=== PATIENT | male | born 1960 | race Caucasian/White ===

== ENCOUNTER 2017-07-29 13:13 | Outpatient (CLI) | payer BC ==
[2017-07-29] MEDS ORDERED: Iopamidol 370 76% 100 ML VIAL ONE (13:39)
--- NOTE | 2017-07-29 15:18 | CT ---
CT ORBITS WITH CONTRAST: Comparison: None. History: Eye pain and inflammation. Retroorbital mass. Technique: Multiple contiguous axial images were obtained in a CT of the orbits with contrast. Sagitt al and coronal reformats were performed. FINDINGS: The globes and retrobulbar soft tissues are unremarkable. No retrobulbar mass or fluid collection is seen. Extraoccular muscles and optic nerves are symmetric in appearance. The paranasal sinuses are well aerated without mucosal thickening or opacification. The bilateral max illary osteomeatal units are patent. The mastoid air cells are well aerated. The visualized intracran ial structures are unremarkable. IMPRESSION: No significant abnormality. POS: [facility]
== END 2017-07-29 13:14 | disposition home or self-care (01) ==
LOC: CT 13:13
PROVIDERS: ATTEND Ophthalmology
DX: H57.10 Ocular pain, unspecified eye (principal)
CPT/HCPCS: 70481

== ENCOUNTER 2020-08-25 10:45 | Outpatient (CLI) | payer BC | END 2020-08-25 10:46 | disposition home or self-care (01) | LOC: LABBT 10:45 | PROVIDERS: ATTEND Thoracic Surgery (Cardiothoracic Vascular Surgery) | DX: Z01.812 Encounter for preprocedural laboratory examination (principal); Z20.822 Contact with and (suspected) exposure to COVID-19 | CPT/HCPCS: 80048; 85027; 86850; 86900; 86901; 87635; U0003; U0005 ==

== ENCOUNTER 2020-08-25 10:45 | Inpatient (IN) | payer BC ==
[2020-08-25 13:51] LABS: Hemoglobin 15.6 g/dL (13.5-17.5); Mean Corpuscular Hemoglobin 29.5 pg (27.0-33.0); Mean Corpuscular Volume 89.6 fl (81.2-95.1); Mean Platelet Volume 10.1 fl (7.4-10.4); Platelet Count 226 10x3/uL (150-450); RBC Distribution Width 13.2 % (11.5-14.5); Red Blood Cell (RBC) Count 5.28 10x6/uL (4.32-5.72); White Blood Cell (WBC) Count 7.3 10x3/uL (3.5-10.5)
[2020-08-25 13:59] LABS: Anion Gap 14 mmol/L (10-20); BUN (Urea Nitrogen) 13 mg/dL (8.4-25.7); Calc. Creatinine Clearance 0 mL/min (70-130); Calcium 9.1 mg/dL (7.8-10.44); Carbon Dioxide 25 mmol/L (23-31); Chloride 103 mmol/L (98-107); Glucose 100 mg/dL (80-115); Potassium 4.6 mmol/L (3.5-5.1); Sodium 137 mmol/L (136-145)
[2020-08-25 23:52] LABS: SARS-CoV-2 PCR by NAA Not Detected (NotDetected)
[2020-08-30] MEDS ORDERED: Albumin 5% 500 ML ONE (06:26)
[2020-08-30] MEDS ORDERED: Dexmedetomidine 200 MCG/2 ML VIAL ONE (06:32)
[2020-08-30] MEDS ORDERED: Midazolam HCl 5 mg/5 ml Vial ONE (06:32)
[2020-08-30] MEDS ORDERED: Fentanyl 100 MCG/2 ML VIAL ONE (06:32)
[2020-08-30] MEDS ORDERED: Midazolam HCl 2 mg/2 ml Vial ONE (06:32)
[2020-08-30] MEDS ORDERED: Vecuronium 10 MG VIAL ONE ×3 (06:32→07:28)
[2020-08-30] MEDS ORDERED: Ketorolac Tromethamine 30 MG/ML VIAL ONE (07:28)
[2020-08-30] MEDS ORDERED: PROPOFOL 200 MG/20 ML VIAL ONE (07:28)
[2020-08-30] MEDS ORDERED: Cardioplegic Soln 1,000 ML BAG ONE (07:28)
[2020-08-30] MEDS ORDERED: Papaverine 60 MG/2 ML VIAL ONE (07:28)
[2020-08-30] MEDS ORDERED: Sodium Bicarb 50 MEQ/50 ML Abboject 8.4% SYRINGE ONE (07:28)
[2020-08-30] MEDS ORDERED: Calcium Chloride 1 GM/10 ML Abboject SYRINGE ONE (07:28)
[2020-08-30] MEDS ORDERED: Heparin 5,000 UNITS/ML VIAL ONE (07:28)
[2020-08-30] MEDS ORDERED: PHENYLEPHRINE-NS 100 MCG/ML 10 ML SYRINGE ONE (07:28)
[2020-08-30] MEDS ORDERED: Mannitol 12.5 GM/50 ML ONE (07:28)
[2020-08-30] MEDS ORDERED: Aminocaproic Acid 5 GM/20 ML VIAL ONE (07:28)
[2020-08-30] MEDS ORDERED: Lidocaine 2% PF 100 mg/5 ml Syringe ONE (07:28)
[2020-08-30] MEDS ORDERED: Heparin 30,000 units/30 ml VIAL ONE (07:28)
[2020-08-30] MEDS ORDERED: Glycopyrrolate 0.2 MG/ML 5 ML SYRINGE ONE (07:28)
[2020-08-30] MEDS ORDERED: Protamine Sulfate 250 MG/25 ML VIAL ONE (07:28)
[2020-08-30] MEDS ORDERED: Magnesium Sulfate 1 GM/2 ML VIAL ONE (07:28)
[2020-08-30] MEDS ORDERED: Nitroglycerin 50 MG/250 ML BOT ONE (07:28)
[2020-08-30] MEDS ORDERED: Thrombin 5000 UNITS/5 ML VIAL ONE (07:28)
[2020-08-30] MEDS ORDERED: Ondansetron PF 4 MG/2 ML Vial ONE (07:28)
[2020-08-30] MEDS ORDERED: Dexamethasone 20 MG/5 ML VIAL ONE (07:28)
[2020-08-30] MEDS ORDERED: ePHEDrine 50 MG/ML VIAL ONE (07:28)
[2020-08-30] MEDS ORDERED: Potassium Chloride 60 MEQ/30 ML VIAL ONE (07:28)
[2020-08-30] MEDS ORDERED: Lidocaine 1% PF 5 ML VIAL ONE ×2 (07:28)
[2020-08-30] MEDS ORDERED: Insulin Regular 300 UNITS/3 ML VIAL ONE (09:02)
[2020-08-30] MEDS ORDERED: Promethazine HCl 25 MG/ML VIAL IM PRN (11:12)
[2020-08-30] MEDS ORDERED: Guaifenesin DM 100-10/5 ML UDCUP PO PRN (11:12)
[2020-08-30] MEDS ORDERED: Nitroglycerin 50 MG/250 ML BOT 250 ML IVPB PRN (11:12)
[2020-08-30] MEDS ORDERED: Bisacodyl 10 MG SUPP PR PRN (11:12)
[2020-08-30] MEDS ORDERED: Mag-Al 1200 mg/1200 mg/30 ML UDCUP PO PRN (11:12)
[2020-08-30] MEDS ORDERED: Bisacodyl 5 MG TAB PO PRN (11:12)
[2020-08-30] MEDS ORDERED: Potassium Chloride 20 MEQ/100 ML PREMIX BAG IVPB PRN (11:12)
[2020-08-30] MEDS ORDERED: niCARdipine 25 MG in Sodium Chloride 0.9% 250 ML 250 ML IVPB PRN (11:12)
[2020-08-30] MEDS ORDERED: Post-Op Insulin Drip Protocol IVPB ONE (11:12)
[2020-08-30] MEDS ORDERED: hydrALAZINE 20 MG/ML VIAL SLOW IVP PRN (11:12)
[2020-08-30] MEDS ORDERED: Norepinephrine 8 MG/0.9% NS 250 ML IVPB PRN (11:12)
[2020-08-30] MEDS ORDERED: Ondansetron PF 4 MG/2 ML Vial IVP PRN (11:12)
[2020-08-30] MEDS ORDERED: Hetastarch 6% 500 ML 500 ML IVPB PRN (11:12)
[2020-08-30] MEDS ORDERED: Morphine 2 MG/ML VIAL SLOW IVP PRN (11:12)
[2020-08-30] MEDS ORDERED: DOPamine 400 MG/D5W 250 ML 250 ML IVPB PRN (11:12)
[2020-08-30] MEDS ORDERED: Fentanyl 100 MCG/2 ML VIAL SLOW IVP PRN (11:12)
[2020-08-30] MEDS ORDERED: Acetaminophen 325 MG TAB PO PRN (11:12)
[2020-08-30] MEDS ORDERED: Magnesium 2 GM/50 ML 2 GM in Premix Bag 1 BAG IVPB SCH (11:15)
[2020-08-30] MEDS ORDERED: HUMULIN R 100 UNITS in Sodium Chloride 0.9% 100 ML IVPB SCH (11:45)
[2020-08-30] MEDS ORDERED: Dextrose 5% in Water 1,000 ML IV PRN (11:45)
[2020-08-30] MEDS ORDERED: Dextrose 50% Abboject 50 ML SYRINGE SLOW IVP PRN (11:45)
[2020-08-30] MEDS ORDERED: Insulin Regular 300 UNITS/3 ML VIAL SC PRN (11:45)
[2020-08-30 12:00] LABS: INR-International Normal Ratio 1.1; Prothrombin Time 14.9 sec (12.0-14.7)
[2020-08-30 12:04] LABS: Hemoglobin 14.6 g/dL (14.0-18.0); Mean Corpuscular HGB CONC 35.6 g/dL (32.0-36.0); Mean Corpuscular Hemoglobin 31.6 pg (27.0-31.0); Mean Corpuscular Volume 88.7 fL (78.0-98.0); Mean Platelet Volume 7.5 fL (7.4-10.4); Platelet Count 156 thou/uL (130-400); RBC Distribution Width 12.7 % (11.5-14.5); Red Blood Cell (RBC) Count 4.63 mill/uL (4.70-6.10); White Blood Cell (WBC) Count 13.6 thou/uL (4.8-10.8)
[2020-08-30 12:09] LABS: Anion Gap 10 mmol/L (10-20); BUN (Urea Nitrogen) 18 mg/dL (8.4-25.7); Calc. Creatinine Clearance 104 mL/min (70-130); Calcium 7.6 mg/dL (7.8-10.44); Carbon Dioxide 22 mmol/L (23-31); Chloride 110 mmol/L (98-107); Glucose 159 mg/dL (80-115); Potassium 4.6 mmol/L (3.5-5.1); Sodium 137 mmol/L (136-145)
[2020-08-30] MEDS: Fentanyl 100 MCG/2 ML VIAL SLOW IVP PRN ×2 (12:19→13:01)
[2020-08-30 12:29] LABS: Band 23 % (5-11); Eosinophils 1 % (0-10); Lymphocytes 6 % (21-51); MDiff Complete? YES; Metamyelocyte 2 % (0-0); Monocytes 4 % (0-10); Neutrophil 63 % (42-75); RBC Morphology Normal; Reactive Lymphocytes 1 % (0-10)
[2020-08-30] MEDS: Lactated Ringer's 1,000 ML IV SCH (13:03)
[2020-08-30] MEDS: CEFAZOLIN 2 GM in Premix Bag 1 BAG IVPB SCH ×2 (13:12→22:38)
[2020-08-30] MEDS: Ketorolac Tromethamine 30 MG/ML VIAL IVP SCH ×2 (13:12→17:44)
[2020-08-30 13:38] VITALS: BMI 35.2
[2020-08-30 17:27] LABS: Hemoglobin 14.6 g/dL (14.0-18.0)
[2020-08-30 17:53] LABS: Potassium 4.5 mmol/L (3.5-5.1)
[2020-08-30] MEDS: Vancomycin 1.5 GRAM/300 ML BAG 1.5 GM in Premix Bag 1 BAG IVPB SCH (20:31)
[2020-08-30] MEDS: Famotidine/PF 20 mg/2ml Vial SLOW IVP SCH (20:32)
[2020-08-30] MEDS ORDERED: Atorvastatin Calcium 10 MG TAB PO SCH (21:00)
[2020-08-30] MEDS ORDERED: Atorvastatin Calcium 40 MG TAB PO SCH (21:00)
[2020-08-31] MEDS: Lactated Ringer's 1,000 ML IV SCH (00:27)
[2020-08-31] MEDS: Ketorolac Tromethamine 30 MG/ML VIAL IVP SCH ×4 (00:38→17:34)
[2020-08-31] MEDS: HYDROcodone/Acetaminophen 5/325 mg Tablet PO PRN ×3 (04:12→20:53)
[2020-08-31 04:38] LABS: #Lymphocytes 1.1 thou/uL (1.20-3.40); #Monocytes 1.4 thou/uL (0.11-0.59); %Eosinophils 0.1 % (0.0-10.0); %Monocytes 10.1 % (0.0-10.0); %Neutrophils 81.8 % (42.0-75.0); Mean Corpuscular HGB CONC 34.2 g/dL (32.0-36.0); Mean Corpuscular Hemoglobin 30.9 pg (27.0-31.0); Mean Corpuscular Volume 90.2 fL (78.0-98.0); Mean Platelet Volume 7.5 fL (7.4-10.4); Platelet Count 187 thou/uL (130-400); RBC Distribution Width 13.1 % (11.5-14.5); Red Blood Cell (RBC) Count 4.53 mill/uL (4.70-6.10); White Blood Cell (WBC) Count 13.5 thou/uL (4.8-10.8)
[2020-08-31 04:52] LABS: Anion Gap 13 mmol/L (10-20); BUN (Urea Nitrogen) 19 mg/dL (8.4-25.7); Calc. Creatinine Clearance 113 mL/min (70-130); Calcium 7.6 mg/dL (7.8-10.44); Carbon Dioxide 20 mmol/L (23-31); Chloride 108 mmol/L (98-107); Glucose 119 mg/dL (80-115); Potassium 4.1 mmol/L (3.5-5.1); Sodium 137 mmol/L (136-145)
[2020-08-31] MEDS: CEFAZOLIN 2 GM in Premix Bag 1 BAG IVPB SCH (06:30)
[2020-08-31] MEDS: Famotidine/PF 20 mg/2ml Vial SLOW IVP SCH (07:53)
[2020-08-31] MEDS: Vancomycin 1.5 GRAM/300 ML BAG 1.5 GM in Premix Bag 1 BAG IVPB SCH (07:53)
[2020-08-31] MEDS: Aspirin 325 MG TAB PO SCH (07:53)
[2020-08-31] MEDS ORDERED: Carvedilol 3.125 MG TAB PO SCH (09:45)
[2020-08-31] MEDS ORDERED: Nitroglycerin 0.4 MG TAB (25 Tab Bottle) SL PRN (11:36)
[2020-08-31] MEDS ORDERED: Dextrose 50% Abboject 50 ML SYRINGE SLOW IVP PRN (12:00)
[2020-08-31] MEDS ORDERED: Dextrose 5% in Water 1,000 ML IV PRN (12:00)
[2020-08-31] MEDS: Carvedilol 3.125 MG TAB PO SCH (17:34)
[2020-08-31] MEDS: Insulin Regular 300 UNITS/3 ML VIAL SC PRN (17:35)
[2020-08-31] MEDS: Atorvastatin Calcium 40 MG TAB PO SCH (20:51)
[2020-08-31] MEDS ORDERED: Enoxaparin Sodium 40 MG/0.4 ML SYRINGE SC SCH (21:00)
[2020-09-01] MEDS: Ketorolac Tromethamine 30 MG/ML VIAL IVP SCH ×5 (00:39→23:48)
[2020-09-01] MEDS: HYDROcodone/Acetaminophen 5/325 mg Tablet PO PRN ×2 (04:50→09:00)
[2020-09-01] MEDS: Insulin Regular 300 UNITS/3 ML VIAL SC PRN (06:25)
[2020-09-01] MEDS: Furosemide 40 MG TAB PO SCH (09:02)
[2020-09-01] MEDS: Aspirin 325 MG TAB PO SCH (09:02)
[2020-09-01] MEDS: Potassium Chloride 10 MEQ TAB PO SCH (09:02)
[2020-09-01] MEDS: Metoprolol Tartrate 25 MG TAB PO SCH ×2 (09:02→21:23)
[2020-09-01] MEDS: Polyethylene Glycol 3350 17 GM Packet PO SCH (09:03)
[2020-09-01] MEDS: Carvedilol 3.125 MG TAB PO SCH (09:05)
[2020-09-01 12:22] LABS: Hemoglobin A1c 5.4 % (4.0-6.0)
[2020-09-01] MEDS: Atorvastatin Calcium 40 MG TAB PO SCH (21:24)
[2020-09-02] MEDS: Ketorolac Tromethamine 30 MG/ML VIAL IVP SCH ×2 (01:03→06:59)
[2020-09-02] MEDS: Potassium Chloride 10 MEQ TAB PO SCH (08:12)
[2020-09-02] MEDS: Furosemide 40 MG TAB PO SCH (08:13)
[2020-09-02] MEDS: Aspirin 325 MG TAB PO SCH (08:13)
[2020-09-02] MEDS: Metoprolol Tartrate 25 MG TAB PO SCH (08:13)
[2020-09-02] MEDS: Polyethylene Glycol 3350 17 GM Packet PO SCH (08:13)
[2020-09-02] MEDS ORDERED: Lisinopril 2.5 MG TAB PO SCH (09:00)
[2020-09-02 12:27] VITALS: BP 137/89; TEMP 98.4
[2020-09-18 14:10] LABS: Actual Bicarbonate (HCO3a) 20.1 mEq/L (22-28); Analyzer IN Cardio OR; Base Excess (BEa) -4.1 mEq/L (-2.0 to +3.0); CO2 Tension 34.6 mmHg (35.0-45.0); Carboxyhemoglobin (COHb) 0.6 gm% (0.0-3.0); Hemoglobin (Hb) 14.6 g/dL (14.0-18.0); O2 Tension (PaO2), arterial 204.9 mmHg (> 80.0); Potassium - ABG Lab 4.43 mmol/L (3.70-5.30); pH, Arterial 7.38 (7.35-7.45)
[2020-09-18 14:11] LABS: Actual Bicarbonate (HCO3v) 23 mEq/L (22-28); Analyzer IN Cardio OR; Base Excess -2.4 mEq/L (-2.0 to +3.0); Calcium, Ionized (venous) 1.02 mmol/L (1.16-1.32); Chloride (VBG) 109 mmol/L (98-106); Potassium (VBG) 5.53 mmol/L (3.70-5.30); Sodium 131.6 mmol/L (133-146); pH (venous) 7.35 (7.32-7.43)
[2020-09-18 14:12] LABS: Analyzer IN Cardio OR; Base Excess (BEa) -1.8 mEq/L (-2.0 to +3.0); CO2 Tension 39.5 mmHg (35.0-45.0); Calcium, Ionized (arterial) 0.99 mmol/L (1.12-1.30); Carboxyhemoglobin (COHb) 0.1 gm% (0.0-3.0); O2 Tension (PaO2), arterial 334.4 mmHg (> 80.0); Potassium - ABG Lab 5.45 mmol/L (3.70-5.30); pH, Arterial 7.38 (7.35-7.45)
[2020-09-18 14:12] LABS: Actual Bicarbonate (HCO3a) 21.7 mEq/L (22-28); Analyzer IN Cardio OR; Base Excess (BEa) -3.1 mEq/L (-2.0 to +3.0); CO2 Tension 38.2 mmHg (35.0-45.0); Calcium, Ionized (arterial) 1.12 mmol/L (1.12-1.30); Carboxyhemoglobin (COHb) 0.7 gm% (0.0-3.0); Hemoglobin (Hb) 15.2 g/dL (14.0-18.0); Potassium - ABG Lab 4.87 mmol/L (3.70-5.30); pH, Arterial 7.37 (7.35-7.45)
[2020-09-18 14:12] LABS: Analyzer IN Cardio OR; Base Excess (BEa) -2.4 mEq/L (-2.0 to +3.0); CO2 Tension 41.8 mmHg (35.0-45.0); Calcium, Ionized (arterial) 1.18 mmol/L (1.12-1.30); Carboxyhemoglobin (COHb) 0.9 gm% (0.0-3.0); Hemoglobin (Hb) 15.3 g/dL (14.0-18.0); O2 Tension (PaO2), arterial 129.6 mmHg (> 80.0); Potassium - ABG Lab 4.65 mmol/L (3.70-5.30); pH, Arterial 7.36 (7.35-7.45)
[2020-09-18 14:13] LABS: Puncture Site Arterial Line
[2020-09-18 14:15] LABS: Puncture Site Arterial Line
[2020-09-18 14:16] LABS: Puncture Site Arterial Line
[2020-09-18 14:17] LABS: Puncture Site Arterial Line
== END 2020-09-02 12:52 | disposition home or self-care (01) | DRG 236 ==
LOC: SURG A 08-30 06:00 → EDSTATUS 08-30 10:45 → CCU 08-30 11:20 → 2NO 08-31 11:07
PROVIDERS: ADMIT Thoracic Surgery (Cardiothoracic Vascular Surgery); ATTEND Thoracic Surgery (Cardiothoracic Vascular Surgery)
PROC: 02100Z9 Bypass Coronary Artery, One Artery from Left Internal Mammary, Open Approach (ICD-10-PCS; principal; 2020-08-30)
PROC: 02100AW Bypass Coronary Artery, One Artery from Aorta with Autologous Arterial Tissue, Open Approach (ICD-10-PCS; 2020-08-30)
PROC: 03BC0ZZ Excision of Left Radial Artery, Open Approach (ICD-10-PCS; 2020-08-30)
PROC: 5A1221Z Performance of Cardiac Output, Continuous (ICD-10-PCS; 2020-08-30)
DX: I25.10 Atherosclerotic heart disease of native coronary artery without angina pectoris (principal); E11.9 Type 2 diabetes mellitus without complications; E78.5 Hyperlipidemia, unspecified; Z20.822 Contact with and (suspected) exposure to COVID-19; K21.9 Gastro-esophageal reflux disease without esophagitis; E66.3 Overweight; E78.2 Mixed hyperlipidemia; I10 Essential (primary) hypertension; F17.210 Nicotine dependence, cigarettes, uncomplicated; M19.90 Unspecified osteoarthritis, unspecified site; Z79.84 Long term (current) use of oral hypoglycemic drugs; Z79.82 Long term (current) use of aspirin; Z79.899 Other long term (current) drug therapy; Z68.35 Body mass index [BMI] 35.0-35.9, adult
CPT/HCPCS: 36415; 36416; 36430; 71045; 80048; 82805; 82947; 83036; 85025; 85027; 85610; 85730; 86850; 86900; 86901; 87635; 93005; 93010; 93798; J0690; J1100; J1642; J1644; J1815; J1885; J2001; J2150; J2250; J2405; J2440; J2704; J2720; J3010; J3370; J3475; J3480; J3490; P9045; S0017; S0028; U0003; U0005

== ENCOUNTER 2021-04-05 12:30 | Outpatient (CLI) | payer BC ==
[2021-04-05 13:26] LABS: #Basophils 0.1 10x3/uL (0.0-0.2); #Eosinphils 0.3 10x3/uL (0.0-0.5); #Monocytes 0.7 10x3/uL (0.0-1.1); #Neutrophils 4.8 10x3/uL (1.5-8.4); %Basophils 0.7 % (0.0-2.0); %Eosinophils 3.9 % (0.0-6.0); %Lymphocytes 17.9 % (18.0-47.0); %Monocytes 10.3 % (0.0-10.0); %Neutrophils 66.9 % (40.0-75.0); Hemoglobin 16.5 g/dL (13.5-17.5); Mean Corpuscular HGB CONC 33.2 g/dL (32.0-36.0); Mean Corpuscular Hemoglobin 30.1 pg (27.0-33.0); Mean Corpuscular Volume 90.5 fl (81.2-95.1); Mean Platelet Volume 9.5 fl (7.4-10.4); Platelet Count 249 10x3/uL (150-450); RBC Distribution Width 12.8 % (11.5-14.5); Red Blood Cell (RBC) Count 5.49 10x6/uL (4.32-5.72); White Blood Cell (WBC) Count 7.2 10x3/uL (3.5-10.5)
[2021-04-05 13:36] LABS: Prothrombin Time 10.6 sec (9.5-12.1)
[2021-04-05 13:38] LABS: Bilirubin Neg (Negative); Blood, Urine Negative (Negative); Clarity Clear (Clear); Glucose, Urine (Dipstick) Normal (Negative); Ketone, Urine Negative (Negative); Leukocyte Negative (Negative); Nitrite Negative (Negative); Protein, Urine (Dipstick) 15 mg/dl (Neg-Trace); Specific Gravity, Urine 1.025 (1.002-1.036); Urobilinogen Normal mg/dL (Less than 2)
[2021-04-05 13:47] LABS: Anion Gap 16 mmol/L (10-20); BUN (Urea Nitrogen) 18 mg/dL (8.4-25.7); Calc. Creatinine Clearance 0 mL/min (70-130); Calcium 9.8 mg/dL (7.8-10.44); Carbon Dioxide 22 mmol/L (23-31); Chloride 106 mmol/L (98-107); Glucose 101 mg/dL (80-115); Potassium 4.6 mmol/L (3.5-5.1); Sodium 139 mmol/L (136-145)
[2021-04-06 01:42] LABS: SARS-CoV-2 PCR by NAA Not Detected (NotDetected)
== END 2021-04-05 12:31 | disposition home or self-care (01) ==
LOC: LABBT 12:30
PROVIDERS: ATTEND Orthopaedic Surgery
DX: Z01.818 Encounter for other preprocedural examination (principal); M16.11 Unilateral primary osteoarthritis, right hip; Z20.822 Contact with and (suspected) exposure to COVID-19
CPT/HCPCS: 80048; 81003; 85025; 85610; 87081; 93005; 93010; U0003; U0005

== ENCOUNTER 2021-04-10 08:06 | Inpatient (IN) | payer BC ==
[2021-04-09 11:48] VITALS: BMI 33.6
[2021-04-10] MEDS ORDERED: Sodium Chloride 0.9% 100 ML ONE (08:43)
[2021-04-10] MEDS ORDERED: Tranexamic Acid 1,000 MG/10 ML VIAL ONE (08:43)
[2021-04-10] MEDS ORDERED: ceFAZolin 2 GM/DEX 5% 100 ML BAG ONE (08:43)
[2021-04-10] MEDS ORDERED: Vancomycin 1.5 GRAM/300 ML BAG 1.5 GM in Premix Bag 1 BAG IVPB SCH (09:00)
[2021-04-10] MEDS ORDERED: Midazolam HCl 2 mg/2 ml Vial ONE ×2 (10:13→11:53)
[2021-04-10] MEDS ORDERED: Fentanyl 100 MCG/2 ML VIAL ONE ×2 (10:13→11:27)
[2021-04-10] MEDS ORDERED: Promethazine HCl 25 MG/ML VIAL IM PRN (11:37)
[2021-04-10] MEDS ORDERED: Zolpidem Tartrate 5 MG TAB PO PRN (11:37)
[2021-04-10] MEDS ORDERED: HYDROcodone/Acetaminophen 10/325 mg Tablet PO PRN (11:37)
[2021-04-10] MEDS ORDERED: Ondansetron PF 4 MG/2 ML Vial IVP PRN (11:37)
[2021-04-10] MEDS ORDERED: diphenhydrAMINE 25 MG CAP PO PRN (11:37)
[2021-04-10] MEDS ORDERED: Acetaminophen 325 MG TAB PO PRN (11:37)
[2021-04-10] MEDS ORDERED: Bupivacaine HCl 0.5%/Epinephrine 1:200,000/PF 30 ml Vial ONE (11:38)
[2021-04-10] MEDS ORDERED: PHENYLEPHRINE-NS 100 MCG/ML 10 ML SYRINGE ONE (11:38)
[2021-04-10] MEDS ORDERED: Acetaminophen 500 MG TAB PO PRN (11:38)
[2021-04-10] MEDS ORDERED: ePHEDrine 50 MG/ML VIAL ONE (11:38)
[2021-04-10] MEDS ORDERED: PROPOFOL 200 MG/20 ML VIAL ONE (11:38)
[2021-04-10] MEDS ORDERED: Bupivacaine PF 0.5% 30 ML VIAL ONE (11:52)
[2021-04-10] MEDS: Ketorolac Tromethamine 30 MG/ML VIAL IVP SCH (16:14)
[2021-04-10] MEDS ORDERED: glyBURIDE 5 MG TAB PO SCH ×2 (16:30→21:00)
[2021-04-10] MEDS: HYDROcodone/Acetaminophen 10/325 mg Tablet PO PRN ×2 (16:32→21:40)
[2021-04-10] MEDS ORDERED: hydrALAZINE 20 MG/ML VIAL SLOW IVP PRN (16:47)
[2021-04-10] MEDS ORDERED: HumaLOG 300 UNITS/3 ML VIAL SC PRN ×2 (16:50)
[2021-04-10] MEDS ORDERED: Dextrose 50% Abboject 50 ML SYRINGE SLOW IVP PRN (16:50)
[2021-04-10] MEDS ORDERED: Dextrose 5% in Water 1,000 ML IV PRN (16:50)
[2021-04-10] MEDS ORDERED: metFORMIN 500 MG TAB PO SCH ×2 (17:00→21:00)
[2021-04-10] MEDS: Sodium Chloride 0.9% 1,000 ML IV SCH (18:04)
[2021-04-10] MEDS: ceFAZolin Sodium/D5W 2 GM in Premix Bag 1 BAG IVPB SCH (21:39)
[2021-04-10] MEDS: Atorvastatin Calcium 40 MG TAB PO SCH (21:39)
[2021-04-10] MEDS: Aspirin 81 mg Enteric Coated Tablet PO SCH (21:41)
[2021-04-11] MEDS: Ketorolac Tromethamine 30 MG/ML VIAL IVP SCH ×3 (00:21→15:20)
[2021-04-11] MEDS: Sodium Chloride 0.9% 1,000 ML IV SCH ×2 (00:43→07:36)
[2021-04-11] MEDS: HYDROcodone/Acetaminophen 10/325 mg Tablet PO PRN ×4 (04:43→17:39)
[2021-04-11] MEDS: ceFAZolin Sodium/D5W 2 GM in Premix Bag 1 BAG IVPB SCH (04:44)
[2021-04-11 05:34] LABS: Hemoglobin 13.8 g/dL (14.0-18.0); Mean Corpuscular HGB CONC 34.9 g/dL (32.0-36.0); Mean Corpuscular Hemoglobin 32.1 pg (27.0-31.0); Mean Corpuscular Volume 91.8 fL (78.0-98.0); Mean Platelet Volume 6.9 fL (7.4-10.4); Platelet Count 218 thou/uL (130-400); RBC Distribution Width 12.2 % (11.5-14.5); White Blood Cell (WBC) Count 8.4 thou/uL (4.8-10.8)
[2021-04-11 05:50] LABS: Anion Gap 11 mmol/L (10-20); BUN (Urea Nitrogen) 24 mg/dL (8.4-25.7); Calc. Creatinine Clearance 105 mL/min (70-130); Calcium 8.8 mg/dL (7.8-10.44); Carbon Dioxide 23 mmol/L (23-31); Chloride 102 mmol/L (98-107); Glucose 103 mg/dL (80-115); Potassium 4.4 mmol/L (3.5-5.1); Sodium 132 mmol/L (136-145)
[2021-04-11] MEDS ORDERED: Aspirin 81 mg Enteric Coated Tablet PO SCH (09:00)
[2021-04-11] MEDS ORDERED: Multivitamin W/ Minerals 1 TAB PO SCH (09:00)
[2021-04-11] MEDS ORDERED: Ferrous Gluconate 324 MG TAB PO SCH (09:00)
[2021-04-11] MEDS ORDERED: Senokot S 8.6-50 MG TAB PO SCH (09:00)
[2021-04-11] MEDS ORDERED: Lisinopril 2.5 MG TAB PO SCH ×2 (09:00)
[2021-04-11] MEDS: Aspirin 81 mg Enteric Coated Tablet PO SCH (09:14)
[2021-04-11] MEDS: Atorvastatin Calcium 40 MG TAB PO SCH (09:30)
[2021-04-11 13:19] VITALS: BP 113/71; TEMP 98.6
== END 2021-04-11 18:04 | disposition home or self-care (01) | DRG 470 ==
LOC: SDC 08:06 → SURG A 11:37
PROVIDERS: ADMIT Orthopaedic Surgery; ATTEND Orthopaedic Surgery
PROC: 0SR9039 Replacement of Right Hip Joint with Ceramic Synthetic Substitute, Cemented, Open Approach (ICD-10-PCS; principal; 2021-04-10)
DX: M16.11 Unilateral primary osteoarthritis, right hip (principal); I25.10 Atherosclerotic heart disease of native coronary artery without angina pectoris; E11.9 Type 2 diabetes mellitus without complications; E78.5 Hyperlipidemia, unspecified; I10 Essential (primary) hypertension; F17.210 Nicotine dependence, cigarettes, uncomplicated; Z79.899 Other long term (current) drug therapy; Z95.1 Presence of aortocoronary bypass graft; Z98.41 Cataract extraction status, right eye; Z98.890 Other specified postprocedural states
CPT/HCPCS: 36415; 36416; 80048; 85027; J1885; J2250; J2405; J2704; J3010; J3370; J3490; S0020

== ENCOUNTER 2022-05-07 07:25 | Outpatient (CLI) | payer BC | END 2022-05-07 07:26 | disposition home or self-care (01) | LOC: LABBT 07:25 | PROVIDERS: ATTEND Specialist | DX: Z53.9 Procedure and treatment not carried out, unspecified reason (principal) | CPT/HCPCS: 93005; 93010 ==

== ENCOUNTER 2022-05-08 12:52 | Outpatient (CLI) | payer BC ==
[~2022-05-08 12:52] MED LIST: Iopamidol 370 76% 100 ML VIAL ONE
== END 2022-05-08 12:53 | disposition home or self-care (01) ==
LOC: BICCT 12:52 → CT 12:53
PROVIDERS: ATTEND Specialist
DX: R59.0 Localized enlarged lymph nodes (principal); C77.0 Secondary and unspecified malignant neoplasm of lymph nodes of head, face and neck; K14.9 Disease of tongue, unspecified
CPT/HCPCS: 70491; 82565; Q9967

== ENCOUNTER 2022-05-09 10:11 | Day surgery (SDC) | payer BC ==
[2022-05-08 14:19] VITALS: BMI 34.4
[2022-05-09] MEDS ORDERED: fentaNYL PF 100 MCG/2 ML SYRINGE ONE ×2 (14:43→15:42)
[2022-05-09] MEDS ORDERED: SUGAMMADEX SODIUM 200 MG/2 ML VIAL ONE (14:43)
[2022-05-09] MEDS ORDERED: Rocuronium Bromide 10 MG/ML (10ML VIAL) ONE (15:14)
[2022-05-09] MEDS ORDERED: Dexamethasone 20 MG/5 ML VIAL ONE (15:14)
[2022-05-09] MEDS ORDERED: Ondansetron PF 4 MG/2 ML Vial ONE (15:14)
[2022-05-09] MEDS ORDERED: PROPOFOL 200 MG/20 ML VIAL ONE (15:14)
== END 2022-05-09 17:15 | disposition home or self-care (01) ==
LOC: SDC 10:11
PROVIDERS: ATTEND Specialist
PROC: 0CBM8ZX Excision of Pharynx, Via Natural or Artificial Opening Endoscopic, Diagnostic (ICD-10-PCS; principal; 2022-05-09)
PROC: 0H94XZX Drainage of Neck Skin, External Approach, Diagnostic (ICD-10-PCS; principal; 2022-05-09)
DX: C01 Malignant neoplasm of base of tongue (principal); C44.42 Squamous cell carcinoma of skin of scalp and neck; R59.0 Localized enlarged lymph nodes; M10.9 Gout, unspecified; K21.9 Gastro-esophageal reflux disease without esophagitis; E11.9 Type 2 diabetes mellitus without complications; E78.5 Hyperlipidemia, unspecified; I10 Essential (primary) hypertension; I25.10 Atherosclerotic heart disease of native coronary artery without angina pectoris; F17.290 Nicotine dependence, other tobacco product, uncomplicated; M19.90 Unspecified osteoarthritis, unspecified site; Z79.82 Long term (current) use of aspirin; Z79.84 Long term (current) use of oral hypoglycemic drugs; Z79.899 Other long term (current) drug therapy; Z95.1 Presence of aortocoronary bypass graft
CPT/HCPCS: 88305; 88341; 88342; J1100; J2405; J2704

== ENCOUNTER 2022-05-21 11:00 | Outpatient (CLI) | payer BC | END 2022-05-21 11:01 | disposition home or self-care (01) | LOC: PET 11:00 | PROVIDERS: ATTEND Radiology Radiation Oncology | DX: C01 Malignant neoplasm of base of tongue (principal); C96.9 Malignant neoplasm of lymphoid, hematopoietic and related tissue, unspecified | CPT/HCPCS: 78815; A9552 ==

== ENCOUNTER 2022-06-26 10:34 | Outpatient (CLI) | payer BC | END 2022-06-26 10:35 | disposition home or self-care (01) | LOC: RAD 10:34 | PROVIDERS: ATTEND Radiology Radiation Oncology | DX: C10.8 Malignant neoplasm of overlapping sites of oropharynx (principal); R13.10 Dysphagia, unspecified | CPT/HCPCS: 74230 ==

== ENCOUNTER 2022-07-26 10:53 | Outpatient (CLI) | payer BC | END 2022-07-26 10:54 | disposition home or self-care (01) | LOC: BICCT 10:53 | PROVIDERS: ATTEND Internal Medicine | DX: C10.8 Malignant neoplasm of overlapping sites of oropharynx (principal); I26.99 Other pulmonary embolism without acute cor pulmonale | CPT/HCPCS: 71275 ==

== ENCOUNTER 2022-07-26 13:34 | Inpatient (IN) | payer BC ==
[2022-07-26] MEDS ORDERED: Heparin 25,000 units/D5W 500 ML ONE (14:13)
[2022-07-26] MEDS ORDERED: Heparin 10,000 UNITS/ 10 ML VIAL ONE (14:13)
[2022-07-26 14:17] LABS: Hemoglobin 11.2 g/dL (14.0-18.0); Mean Corpuscular HGB CONC 34.5 g/dL (32.0-36.0); Mean Corpuscular Hemoglobin 33.1 pg (27.0-31.0); Mean Platelet Volume 6.5 fL (7.4-10.4); Platelet Count 241 10x3/uL (130-400); RBC Distribution Width 16.4 % (11.5-14.5); Red Blood Cell (RBC) Count 3.39 mill/uL (4.70-6.10); White Blood Cell (WBC) Count 5.9 10x3/uL (4.8-10.8)
[2022-07-26 14:26] LABS: INR-International Normal Ratio 1.5; Prothrombin Time 18.4 sec (12.0-14.7)
[2022-07-26 14:27] LABS: PTT 40.5 sec (22.9-36.1)
[2022-07-26 14:51] LABS: Anisocytosis SLIGHT = 6-15 cells (100X) (0-5/hpf); Band 9 % (5-11); Lymphocytes 1 % (21-51); MDiff Complete? YES; Monocytes 12 % (0-10); Neutrophil 78 % (42-75); Nucleated RBC 1 % (0); Ovalocytes SLIGHT = 2-5 cells (100X) (0-1/hpf); Platelet Morphology Comment Appears Adequate; Polychromasia SLIGHT = 2-3 cells (100X) (0-2/hpf)
[2022-07-26] MEDS ORDERED: HYDROcodone/Acetaminophen 5/325 mg Tablet PO PRN (14:51)
[2022-07-26] MEDS ORDERED: HYDROcodone/Acetaminophen 7.5/325 mg Tablet PO PRN (14:51)
[2022-07-26] MEDS ORDERED: Guaifenesin DM 100-10/5 ML UDCUP PO PRN (14:51)
[2022-07-26 14:53] LABS: ALT (SGPT) 30 U/L (8-55); AST (SGOT) 19 U/L (5-34); Albumin 3.5 g/dL (3.4-4.8); Alkaline Phosphatase 105 U/L (40-110); BUN (Urea Nitrogen) 20 mg/dL (8.4-25.7); Bilirubin, Total 0.4 mg/dL (0.2-1.2); Calc. Creatinine Clearance 0 mL/min (70-130); Calcium 8.5 mg/dL (7.8-10.44); Carbon Dioxide 22 mmol/L (23-31); Chloride 104 mmol/L (98-107); Estimated GFR 94; Globulin 2.6 g/dL (2.4-3.5); Glucose 148 mg/dL (80-115); Potassium 4.8 mmol/L (3.5-5.1); Protein, Total 6.1 g/dL (5.8-8.1); Sodium 136 mmol/L (136-145)
[2022-07-26] MEDS ORDERED: Dextrose 50% Abboject 50 ML SYRINGE SLOW IVP PRN (14:56)
[2022-07-26] MEDS ORDERED: HumaLOG 300 UNITS/3 ML VIAL SC PRN (14:56)
[2022-07-26] MEDS ORDERED: Dextrose 5% in Water 1,000 ML IV PRN (14:56)
[2022-07-26 14:59] LABS: CKMB 1.4 ng/mL (0-6.6)
[2022-07-26 15:36] LABS: Anion Gap 15 mmol/L (10-20)
[2022-07-26 16:36] VITALS: BMI 30.4
[2022-07-26 19:09] LABS: Troponin I 0.074 ng/mL (< 0.028)
[2022-07-26] MEDS ORDERED: Famotidine/PF 20 mg/2ml Vial SLOW IVP SCH (21:00)
[2022-07-26 22:42] LABS: Troponin I 0.073 ng/mL (< 0.028)
[2022-07-27 06:37] LABS: Anion Gap 12 mmol/L (10-20); BUN (Urea Nitrogen) 19 mg/dL (8.4-25.7); Band 13 % (5-11); Calc. Creatinine Clearance 116 mL/min (70-130); Calcium 8.8 mg/dL (7.8-10.44); Carbon Dioxide 28 mmol/L (23-31); Chloride 101 mmol/L (98-107); Estimated GFR 99; Glucose 99 mg/dL (80-115); Hemoglobin 10.5 g/dL (14.0-18.0); Hypochromia SLIGHT = 6-15 cells (100X) (0-5/hpf); Lymphocytes 2 % (21-51); MDiff Complete? YES; Mean Corpuscular Hemoglobin 34.4 pg (27.0-31.0); Mean Corpuscular Volume 95.5 fl (78.0-98.0); Mean Platelet Volume 6.4 fL (7.4-10.4); Monocytes 16 % (0-10); Neutrophil 69 % (42-75); Platelet Count 244 10x3/uL (130-400); Platelet Morphology Comment Appears Adequate; RBC Distribution Width 16.4 % (11.5-14.5); Red Blood Cell (RBC) Count 3.05 mill/uL (4.70-6.10); Sodium 137 mmol/L (136-145); White Blood Cell (WBC) Count 4.3 10x3/uL (4.8-10.8)
[2022-07-27] MEDS: Heparin 10,000 UNITS/ 10 ML VIAL SLOW IVP SCH ×2 (07:26→22:39)
[2022-07-27] MEDS: Heparin 25,000 units/D5W 500 ML IVPB SCH ×2 (07:28→22:17)
[2022-07-27] MEDS: Famotidine 20 MG TAB PO SCH ×2 (09:11→22:42)
[2022-07-28] MEDS: Famotidine 20 MG TAB PO SCH (08:23)
[2022-07-28] MEDS ORDERED: Apixaban 5 MG TAB PO SCH ×2 (12:00→21:00)
[2022-07-28 15:19] LABS: Hemoglobin 11.5 g/dL (14.0-18.0); Platelet Count 273 10x3/uL (130-400)
[2022-07-28 15:37] VITALS: BP 109/71; TEMP 98.7
== END 2022-07-28 17:43 | disposition home or self-care (01) | DRG 176 ==
LOC: ERS 13:34 → IMCU/EMU 15:44 → 2NO 07-28 02:02
PROVIDERS: ADMIT Family Medicine; ATTEND Internal Medicine
DX: I26.99 Other pulmonary embolism without acute cor pulmonale (principal); I10 Essential (primary) hypertension; E78.5 Hyperlipidemia, unspecified; E11.9 Type 2 diabetes mellitus without complications; C02.9 Malignant neoplasm of tongue, unspecified; I25.10 Atherosclerotic heart disease of native coronary artery without angina pectoris; Z96.642 Presence of left artificial hip joint; Z79.84 Long term (current) use of oral hypoglycemic drugs; Z79.82 Long term (current) use of aspirin; Z79.899 Other long term (current) drug therapy; Z98.890 Other specified postprocedural states; Z87.891 Personal history of nicotine dependence; Z95.1 Presence of aortocoronary bypass graft; D70.8 Other neutropenia; C10.8 Malignant neoplasm of overlapping sites of oropharynx
CPT/HCPCS: 36415; 36416; 71275; 80048; 80053; 82553; 83605; 83735; 83880; 84484; 85014; 85018; 85025; 85049; 85610; 85730; 93005; 93306; 93970; 96365; 96375; J1644; J1815; S0028

== ENCOUNTER 2022-10-02 08:03 | Outpatient (CLI) | payer BC | END 2022-10-02 08:04 | disposition home or self-care (01) | LOC: RAD 08:03 | PROVIDERS: ATTEND Internal Medicine Critical Care Medicine | DX: R06.00 Dyspnea, unspecified (principal) | CPT/HCPCS: 71046 ==

== ENCOUNTER 2022-10-08 09:30 | Outpatient (CLI) | payer BC | END 2022-10-08 09:31 | disposition home or self-care (01) | LOC: PET 09:30 | PROVIDERS: ATTEND Radiology Radiation Oncology | DX: C01 Malignant neoplasm of base of tongue (principal) | CPT/HCPCS: 78815; A9552 ==

== ENCOUNTER 2023-02-27 07:55 | Outpatient (CLI) | payer BC | END 2023-02-27 07:56 | disposition home or self-care (01) | LOC: CT 07:55 | PROVIDERS: ATTEND Radiology Radiation Oncology | DX: C01 Malignant neoplasm of base of tongue (principal) | CPT/HCPCS: 70491; 82565 ==

== ENCOUNTER 2023-04-04 05:39 | Day surgery (SDC) | payer BC, MEDICARE ==
[2023-04-03 09:49] VITALS: BMI 29.7
[2023-04-04] MEDS ORDERED: EPINEPHrine 1 MG/ML AMP ONE (06:40)
[2023-04-04] MEDS ORDERED: Lidocaine 1% (PF) 30 ML VIAL ONE (06:40)
[2023-04-04] MEDS ORDERED: Bupivacaine 0.25% HCL 30 ML VIAL ONE (06:40)
[2023-04-04] MEDS ORDERED: fentaNYL 50 mcg/mL 1 mL Vial ONE (07:03)
[2023-04-04] MEDS ORDERED: Midazolam HCl 2 mg/2 ml Vial ONE (07:03)
[2023-04-04] MEDS ORDERED: Sodium Chloride 0.9% 100 ML ONE (07:07)
[2023-04-04] MEDS ORDERED: CEFAZOLIN 2 GM VIAL ONE (07:07)
[2023-04-04] MEDS ORDERED: PROPOFOL 200 MG/20 ML VIAL ONE (07:08)
[2023-04-04] MEDS ORDERED: Ondansetron PF 4 MG/2 ML Vial ONE (07:08)
== END 2023-04-04 08:44 | disposition home or self-care (01) ==
LOC: SDC 05:39
PROVIDERS: ATTEND Thoracic Surgery (Cardiothoracic Vascular Surgery)
PROC: 0PB00ZZ Excision of Sternum, Open Approach (ICD-10-PCS; principal; 2023-04-04)
DX: T82.847A Pain due to cardiac prosthetic devices, implants and grafts, initial encounter (principal); I25.10 Atherosclerotic heart disease of native coronary artery without angina pectoris; Z86.711 Personal history of pulmonary embolism; F17.210 Nicotine dependence, cigarettes, uncomplicated; Z79.899 Other long term (current) drug therapy
CPT/HCPCS: J0171; J1642; J2001; J2250; J2405; J2704; J3010; J3490; S0020

== ENCOUNTER 2023-04-07 13:30 | Outpatient (CLI) | payer MEDICARE, BC | END 2023-04-07 13:31 | disposition home or self-care (01) | LOC: CT 13:30 | PROVIDERS: ATTEND Internal Medicine | DX: I26.99 Other pulmonary embolism without acute cor pulmonale (principal); R79.1 Abnormal coagulation profile; J98.2 Interstitial emphysema | CPT/HCPCS: 71275; 82565 ==

== ENCOUNTER 2023-07-21 08:36 | Outpatient (CLI) | payer MEDICARE, BC ==
[2023-07-21] MEDS ORDERED: Iopamidol 370 76% 100 ML VIAL ONE (10:53)
== END 2023-07-21 08:37 | disposition home or self-care (01) ==
LOC: CT 08:36
PROVIDERS: ATTEND Radiology Radiation Oncology
DX: C01 Malignant neoplasm of base of tongue (principal); M79.89 Other specified soft tissue disorders
CPT/HCPCS: 70491; 71260; 82565; J1642

== ENCOUNTER 2024-06-22 08:58 | Outpatient (CLI) | payer MEDICARE, BC | END 2024-06-22 08:59 | disposition home or self-care (01) | LOC: CT 08:58 | PROVIDERS: ATTEND Radiology Radiation Oncology | DX: C01 Malignant neoplasm of base of tongue (principal); R91.1 Solitary pulmonary nodule | CPT/HCPCS: 36415; 70491; 71260; 82565 ==

== ENCOUNTER 2024-07-22 15:23 | Outpatient (CLI) | payer MEDICARE, BC | END 2024-07-22 15:24 | disposition home or self-care (01) | LOC: ULT 15:23 | PROVIDERS: ATTEND Family Medicine | DX: M79.89 Other specified soft tissue disorders (principal); R60.0 Localized edema; T82.868A Thrombosis due to vascular prosthetic devices, implants and grafts, initial encounter ==